=== PATIENT | male | born 1995 | race Caucasian/White ===

== ENCOUNTER 2023-07-06 14:32 | Emergency (ER) | payer OTHER ==
[~2023-07-06] VITALS: Ht 175.3 cm; Wt 75.7 kg
[2023-07-06 14:34] VITALS: BP 126/83; PULSE 101; RESP 16; TEMP 98; O2SAT 99
[2023-07-06] MEDS: ONDANSETRON 4 MG ODT PO ONE (16:08)
[2023-07-06] MEDS: ACETAMINOPHEN EXTRA STRENGTH 500 MG TAB PO ONE (16:09)
[2023-07-06] MEDS ORDERED: DICL100G32 TP (16:53)
[2023-07-06] MEDS ORDERED: ONDA-188 PO (16:53)
[2023-07-06] MEDS ORDERED: IBUP-2213 PO (16:53)
== END 2023-07-06 17:22 | disposition home or self-care (01) ==
LOC: MED 14:32
DX: S06.0X0A Concussion without loss of consciousness, initial encounter (principal); S70.12XA Contusion of left thigh, initial encounter; S70.11XA Contusion of right thigh, initial encounter; M54.2 Cervicalgia; R11.10 Vomiting, unspecified; Z79.899 Other long term (current) drug therapy; V49.88XA Car occupant (driver) (passenger) injured in other specified transport accidents, initial encounter; Y93.89 Activity, other specified; Y92.89 Other specified places as the place of occurrence of the external cause; Y99.8 Other external cause status
CPT/HCPCS: 70450; 72125; 90471; 90715; 99285; Q0162